=== PATIENT | female | born 1940 | race American Indian/Alaskan Native ===

== ENCOUNTER 2022-02-23 11:49 | Emergency (ER) | payer BC ==
[2022-02-23] MEDS ORDERED: Sodium Chloride 0.9% 10 ML Syringe FLUSH PRN (12:30)
[2022-02-23] MEDS ORDERED: Ondansetron 4 MG/2 ML SDV IVPUSH ONE (12:30)
[2022-02-23] MEDS ORDERED: HYDROmorphone 0.5 MG/0.5 ML Syringe IVPUSH ONE ×3 (12:30→15:45)
[2022-02-23] MEDS ORDERED: Sodium Chloride 0.9% 1,000 ML IV STA (15:31)
== END 2022-02-23 16:30 ==
LOC: JD.ED 11:49
DX: S72.142A Displaced intertrochanteric fracture of left femur, initial encounter for closed fracture (principal); Z79.899 Other long term (current) drug therapy; Z20.822 Contact with and (suspected) exposure to COVID-19; W01.0XXA Fall on same level from slipping, tripping and stumbling without subsequent striking against object, initial encounter; Y99.0 Civilian activity done for income or pay
CPT/HCPCS: 36415; 73502; 80053; 81001; 85025; 87086; 87635; 96374; 96375; 96376; 99285; J1170; J2405; J3490; J7030; U0002